=== PATIENT | female | born 1970 | race Caucasian/White ===

== ENCOUNTER 2016-11-04 00:29 | Emergency (ER) | payer OTHER ==
[~2016-11-04] VITALS: Ht 157.5 cm; Wt 97.5 kg
[~2016-11-04 00:29] MED LIST: IBUPROFEN800 MG PO; PERCOCET 325 MG1 TA2 PO; ZOFRAN ODT4 MG PO
--- NOTE | 2016-11-04 01:01 | ED MVC/FALL/TRAUMA COMPLAINT ---
History of Present Illness General Chief Complaint: General Adult Stated Complaint: "I THINK I HAVE A KIDNEY STONE, LT BACK PAIN" Source: patient Exam Limitations: no limitations Vital Signs & Intake/Output Vital Signs & Intake/Output Vital Signs Date Time Temp Pulse Resp B/P B/P Pulse O2 O2 Flow FiO2 Mean Ox Delivery Rate 11/04 0221 80 18 135/84 98 Room Air 11/04 0038 98.1 83 18 145/90 97 Room Air Allergies Coded Allergies: Penicillins (Intermediate, HIVES 11/04/16) Reconcile Medications Ibuprofen 800 MG TABLET 1 TAB PO TID PRN pain Ondansetron (Zofran Odt) 4 MG TAB.RAPDIS 1 TAB SL TID PRN nausea Oxycodone HCl/Acetaminophen (Percocet 5-325 MG Tablet) 5 MG-325 MG TABLET 1 TAB PO 4XDP PRN PAIN TEN...[id number] Triage Note: PT TO ED C/O LEFT FLANK PAIN SINCE AM "I WAS HOPING IT WAS A MUSCLE" PMH OF KIDNEY STONES "NOW IT FEELS LIKE A STONE" +NAUSEA, DENIES VOMITTING. DENIES UTI S/S. Triage Nurses Notes Reviewed? yes Onset: Abrupt Duration: hour(s): Timing: recent history Severity: moderate Injuries/Fall Location: left flank Method of Injury: no injury... "I think I have a kidney stone" Loss of Consciousness: no loss of consciousness Modifying Factors: Worsens With: vomiting. Associated Symptoms: nausea and vomiting : No Patient currently breastfeeds: No HPI: 45 yo woman left flank pain since this morning, associated with nausea. "I think I'm having another kidney stone." She notes left flank pain radiating to left abdomen, several episodes of vomiting, associated with nausea. No fever, chills, dysuria, dyspnea, diarrhea. She is otherwise well. Past History Travel History Traveled to [place] past 21 day No Medical History Any Pertinent Medical History? see below for history EENT: allergies Respiratory: asthma Renal: KIDNEY STONES Psychiatric: anxiety, depression, PTSD Cancer(s): BASAL CELL Surgical History Surgical History: , CARPAL TUNNEL ULNAR NERVE SX GANGLION CYST REMOVAL. ORTHOSCOPIC KNEE Psychosocial History What is your primary language Chinese Tobacco Use: Never used ETOH Use: occasional use Illicit Drug Use: denies illicit drug use Family History Hx Contributory? No Review of Systems Review of Systems Constitutional: Reports: no symptoms. Eyes: Reports: no symptoms. Ears, Nose, Throat, Mouth: Reports: no symptoms. Respiratory: Reports: no symptoms. Cardiovascular: Reports: no symptoms. Gastrointestinal/Abdominal: Reports: no symptoms. Genitourinary: Reports: no symptoms. Musculoskeletal: Reports: no symptoms. Skin: Reports: no symptoms. Neurological/Psychological: Reports: no symptoms. All Other Systems: Reviewed and Negative Physical Exam Physical Exam General Appearance: well developed/nourished, moderate distress Head: atraumatic, normal appearance Eyes: Bilateral: normal appearance. Ears, Nose, Throat, Mouth: hearing grossly normal Neck: normal inspection, supple, full range of motion, normal alignment Respiratory: normal breath sounds, chest non-tender, no respiratory distress, quiet respiration, lungs clear Cardiovascular: regular rate/rhythm Gastrointestinal: normal bowel sounds, soft, non-tender, no organomegaly Back: minimal left flank tenderness to palpation Extremities: normal range of motion Neurologic/Psych: no motor/sensory deficits, awake, alert, oriented x 3 Skin: intact, normal color, warm/dry Core Measures ACS in differential dx? No Severe Sepsis Present: No Septic Shock Present: No Progress Differential Diagnosis: kidney stone vs muscle spasm vs other. Plan of Care: Orders Procedure Date/time Status LIPASE 11/04 116 Complete COMPREHENSIVE METABOLIC PANEL 11/04 116 Complete CBC WITHOUT DIFFERENTIAL 11/04 116 Complete AMYLASE 11/04 116 Complete URINE 11/04 003 Complete URINALYSIS 11/04 003 Complete Laboratory Tests 11/04/16 0132: Anion Gap 11, Estimated GFR 49 L, BUN/Creatinine Ratio 11.7, Glucose 98, Calcium 9.4, Total Bilirubin 0.4, AST 19, ALT 30, Alkaline Phosphatase 80, Total Protein 6.6, Albumin 3.8, Globulin 2.8, Albumin/Globulin Ratio 1.4, Amylase 59, Lipase 111, CBC w Diff NO MAN DIFF REQ, RBC 4.32, MCV 89.7, MCH 30.9, RDW 13.0, MPV 8.3, Gran % 69.0, Lymphocytes % 20.5, Monocytes % 7.9, Eosinophils % 2.4, Basophils % 0.2, Absolute Granulocytes 6.5, Absolute Lymphocytes 1.9, Absolute Monocytes 0.7 H, Absolute Eosinophils 0.2, Absolute Basophils 0, PUBS MCHC 34.4 11/04/16 0040: Urine Color YEL, Urine Clarity CLEAR, Urine pH 6.5, Ur Specific Estill 1.020, Urine Protein NEG, Urine Ketones NEG, Urine Nitrite NEG, Urine Bilirubin NEG, Urine Urobilinogen 0.2, Ur Leukocyte Esterase NEG, Ur Microscopic SEDIMENT EXAMINED, Urine RBC 1-3, Urine WBC RARE, Ur Epithelial Cells MANY H, Urine Bacteria MANY H, Urine Hemoglobin TRACE-LYSED, Urine Glucose NEG, Urine Test NEGATIVE Diagnostic Imaging: Viewed by Me: CT Scan. Discussed w/RAD: CT Scan. Radiology Impression: abd/pelvic ct... 2mm left sided stone w/ obstructive uropathy. Comments: PATIENT: DUSTIN GUY PRESENT AGE: 45 PATIENT ACCOUNT NO: [id number] : 70 LOCATION: [facility] ORDERING PHYSICIAN: TAYLOR PLUMMER MD SERVICE DATE: 11/04/160118 EXAM TYPE: CAT - CT ABD & PELVIS W/O IV CONTRAS EXAMINATION: CT ABDOMEN AND PELVIS WITHOUT CONTRAST CLINICAL INFORMATION: Left flank pain. Question kidney stone. COMPARISON: Abdominal CT March 01, 2015. TECHNIQUE: Multidetector volumetric imaging was performed from the superior aspect of the liver through the pubic symphysis. Sagittal and coronal reformatted images were obtained on the technologist's workstation. FINDINGS: The lung bases are clear. Limited evaluation of the unenhanced liver, spleen, adrenal glands, and pancreas reveals no definite abnormality. Gallbladder calculi. There is a punctate 2 mm calculus within the proximal left ureter just distal to the left ureteropelvic junction that results in moderate left-sided hydronephrosis and significant left-sided perinephric stranding. The large and small bowel are normal in caliber without evidence of mechanical obstruction. No focal inflammatory changes adjacent to the large or the small bowel. The appendix is normal. There is no free air and there is no intra-abdominal free fluid. No mesenteric or retroperitoneal adenopathy. The pelvic viscera are normal. No pelvic adenopathy. No free fluid within the pelvis. There are no acute osseous abnormalities. No significant soft tissue abnormality. IMPRESSION: - Left-sided obstructive uropathy with a punctate 2 mm calculus within the proximal left ureter just distal to the left ureteropelvic junction that results in moderate left-sided hydronephrosis and significant left-sided perinephric stranding. - Cholelithiasis. DICTATED BY: FIDELIA LEYAV MD DATE/TIME DICTATED:11/04/16154 [employer] GRADE THREE:ISABELLE DATE/TIME TRANSCRIBED:11/04/16154 CONFIDENTIAL, DO NOT COPY WITHOUT APPROPRIATE AUTHORIZATION. <Electronically signed in Other Vendor System> SIGNED BY: FIDELIA LEYVA MD 11/04/16 0202 Departure Departure Disposition: HOME OR SELF CARE Condition: Stable Clinical Impression Primary Impression: Renal colic on left side Referrals: PATIENT HAS NO PRIMARY CARE DR (PCP/Family) Departure Forms: Customer Survey General Discharge Information Prescriptions: Current Visit Scripts Ibuprofen 1 TAB PO TID PRN pain #90 TAB Ondansetron (Zofran Odt) 1 TAB SL TID PRN nausea #10 TAB Oxycodone HCl/Acetaminophen (Percocet 5-325 MG Tablet) 1 TAB PO 4XDP PRN PAIN #10 TAB TEN...[id number] Comments 11/04/16, 2:30am... pt feeling well after toradol, iv fluids, 2mm stone on ct scan... pt safe for discharge.
[2016-11-04 01:46] LABS: ABSOLUTE BASOPHIL COUNT 0 /CUMM (0.0-0.2); ABSOLUTE EOSINOPHIL COUNT 0.2 /CUMM (0.0-0.7); ABSOLUTE GRANULOCYTE CT 6.5 /CUMM (1.4-6.5); ABSOLUTE LYMPH COUNT 1.9 /CUMM (1.2-3.4); ABSOLUTE MONOCYTE COUNT 0.7 /CUMM (0.10-0.60); BASOPHIL % 0.2 % (0.0-2.0); EOSINOPHIL % 2.4 % (0-5); HEMATOCRIT 38.7 % (37-47); MEAN CORPUSCULAR HGB 30.9 PG (27.0-31.0); MEAN CORPUSCULAR HGB CONC 34.4 G/DL (33.0-37.0); MEAN CORPUSCULAR VOLUME 89.7 FL (81.0-99.0); MEAN PLATELET VOLUME 8.3 FL (7.4-10.4); PLATELET COUNT 229 /CUMM (130-400); RED BLOOD CELL CT 4.32 /CUMM (4.20-5.40); WHITE BLOOD CELL COUNT 9.4 /CUMM (4.8-10.8)
--- NOTE | 2016-11-04 02:02 | CT SCAN REPORT ---
EXAMINATION: CT ABDOMEN AND PELVIS WITHOUT CONTRAST CLINICAL INFORMATION: Left flank pain. Question kidney stone. COMPARISON: Abdominal CT March 01, 2015. TECHNIQUE: Multidetector volumetric imaging was performed from the superior aspect of the liver through the pubic symphysis. Sagittal and coronal reformatted images were obtained on the technologist's workstation. FINDINGS: The lung bases are clear. Limited evaluation of the unenhanced liver, spleen, adrenal glands, and pancreas reveals no definite abnormality. Gallbladder calculi. There is a punctate 2 mm calculus within the proximal left ureter just distal to the left ureteropelvic junction that results in moderate left-sided hydronephrosis and significant left-sided perinephric stranding. The large and small bowel are normal in caliber without evidence of mechanical obstruction. No focal inflammatory changes adjacent to the large or the small bowel. The appendix is normal. There is no free air and there is no intra-abdominal free fluid. No mesenteric or retroperitoneal adenopathy. The pelvic viscera are normal. No pelvic adenopathy. No free fluid within the pelvis. There are no acute osseous abnormalities. No significant soft tissue abnormality. IMPRESSION: - Left-sided obstructive uropathy with a punctate 2 mm calculus within the proximal left ureter just distal to the left ureteropelvic junction that results in moderate left-sided hydronephrosis and significant left-sided perinephric stranding. - Cholelithiasis.
[2016-11-04] MEDS ORDERED: ZOFRAN ODT4 M1 SL (02:12)
[2016-11-04] MEDS ORDERED: IBUPROFEN800 M1 PO (02:12)
[2016-11-04] MEDS ORDERED: PERCOCET 5-3251 EACH PO (02:12)
[2016-11-04 02:21] VITALS: BP 135/84
== END 2016-11-04 02:22 ==
LOC: ERH 00:29
PROVIDERS: Pediatrics
DX: N23 Unspecified renal colic (principal)
CPT/HCPCS: 74176; 81001; 81025; 96361; 96374; 96375; J1885; J2405